=== PATIENT | male | born 2000 | race Caucasian/White ===

== ENCOUNTER 2019-07-19 15:48 | Emergency (ER) | payer BC ==
--- NOTE | 2019-07-19 16:15 | ERPHSYRPT ---
- History of Present Illness Time Seen by Provider: 07/19/19 16:15 Source: patient Physician History: injured ankle while going downstairs and developed deformity left ankle Method of Injury: fell Occurred: just prior to arrival Quality: constant Severity of Pain-Max: moderate Severity of Pain-Current: moderate Lower Extremities Pain: ankle: left Modifying Factors: Improves With: nothing Associated Symptoms: unable to bear weight Body Map: 1 - deformity Allergies/Adverse Reactions: No Known Drug Allergies Allergy (Verified 07/19/19 16:19) Home Medications: No Reportable Medications [No Reported Medications] 07/19/19 [History] - Review of Systems Constitutional: No Symptoms Eyes: No Symptoms Ears, Nose, & Throat: No Symptoms Respiratory: No Symptoms Cardiac: No Symptoms Abdominal/Gastrointestinal: No Symptoms Genitourinary Symptoms: No Symptoms Musculoskeletal: Deformity, Fall, Joint Pain, Joint Swelling Skin: No Symptoms - Nursing Vital Signs Nursing Vital Signs: Initial Vital Signs Temperature 98.5 F 07/19/19 16:08 Pulse Rate 63 07/19/19 16:08 Blood Pressure 135/67 07/19/19 16:08 O2 Sat by Pulse Oximetry 99 07/19/19 16:08 Pain Scale Pain Intensity 6 - Physical Exam General Appearance: alert Eyes, Ears, Nose, Throat Exam: moist mucous membranes Neck Exam: non-tender, supple Cardiovascular/Respiratory Exam: chest non-tender, normal breath sounds, regular rate/rhythm, no respiratory distress Gastrointestinal/Abdominal Exam: non-tender, guarding Back Exam: normal inspection, No vertebral tenderness Ankle Exam: left ankle: deformity, limited range of motion Neuro/Tendon Exam: normal sensation, normal motor functions Mental Status Exam: alert, oriented x 3, cooperative Skin Exam: normal color, warm, dry Procedures - Splinting Location of Splint: Left, Ankle Type of Splint: Orthoglass Long Leg Splint Splint Applied By: ED Nurse Pre-Proc Neuro Vasc Exam: normal Post-Proc Neuro Vasc Exam: neurovascular intact - Course Nursing assessment & vital signs reviewed: Yes - Radiology Exams Ankle X-ray Interpretation: Reviewed by me, Displaced Fracture (lower end of fibula), Subluxation (anterior subluxation) Ordered Tests: Medication Summary Discontinued Medications Generic Name Dose Route Start Last Admin Trade Name Diane PRN Reason Stop Dose Admin Sodium Chloride 1,000 mls @ 999 mls/hr 07/19/19 16:26 07/19/19 16:33 Sodium Chloride 0.9% 1000 Ml IV 07/19/19 17:26 999 mls/hr .Q1H1M STA Administration Sodium Chloride Confirm 07/19/19 16:27 Sodium Chloride 0.9% 1000 Ml Administered 07/19/19 16:28 Dose 1,000 mls @ ud .ROUTE .STK-MED ONE Ketorolac Tromethamine 30 mg 07/19/19 16:19 07/19/19 16:23 Toradol 30 Mg Injection IV 07/19/19 16:20 30 mg STAT ONE Administration Ketorolac Tromethamine Confirm 07/19/19 16:21 Toradol 30 Mg Injection Administered 07/19/19 16:22 Dose 30 mg .ROUTE .STK-MED ONE - Progress Progress: unchanged Discussed with .: Other (transfer to [facility] ER, Dr Olivier ER physician) - Departure Departure Disposition: Transfer ([facility] ([facility]) ) Clinical Impression: Ankle fracture, left Qualifiers: Encounter type: initial encounter Fracture type: closed Qualified Code(s): S82.892A - Other fracture of left lower leg, initial encounter for closed fracture Fracture subluxation of ankle joint Qualifiers: Encounter type: initial encounter Fracture type: closed Laterality: left Qualified Code(s): S82.892A - Other fracture of left lower leg, initial encounter for closed fracture Condition: Stable Critical Care Time: No Referrals: DOCTOR,NO FAMILY [Primary Care Provider] - Instructions: Ankle Fracture (DC)
[2019-07-19 16:19] VITALS: O2SAT 99
[2019-07-19] MEDS ORDERED: TORAdol 30 mg Injection IV ONE (16:19)
[2019-07-19] MEDS ORDERED: TORAdol 30 mg Injection ONE (16:21)
[2019-07-19] MEDS ORDERED: Sodium Chloride 0.9% 1000 ML 1,000 ML IV STA (16:26)
[2019-07-19] MEDS ORDERED: Sodium Chloride 0.9% 1000 ML 1,000 ML ONE (16:27)
[2019-07-19 16:39] VITALS: BP 119/59; PULSE 84
--- NOTE | 2019-07-19 19:19 | XRAY ---
Indication: Pain following injury. Comparison: None 3 views of the left ankle demonstrates posterior lateral talus subluxation, displaced/angulated lateral malleolus fracture, and soft tissue swelling. No other bony, articular, or soft tissue abnormalities.
== END 2019-07-19 16:57 | disposition short-term general hospital (02) ==
LOC: ED 15:48
DX: S82.892A Other fracture of left lower leg, initial encounter for closed fracture (principal); W10.8XXA Fall (on) (from) other stairs and steps, initial encounter
CPT/HCPCS: 73610; 96374; 99284; 99291; J1885